=== PATIENT | female | born 1985 | race Caucasian/White ===

== ENCOUNTER 2025-01-10 09:25 | Emergency (ER) | payer OTHER ==
--- NOTE | 2025-01-10 09:42 | EDPHYS ---
Physician Documentation [facility] Name: Lani Blankenship Age: 39 yrs Sex: Female : 1985 Arrival Date: 01/10/2025 Time: 09:25 Bed IW2 Private MD: ED Physician Doni Garcia HPI: 01/10 09:47 This 39 yrs old Female presents to ER via Ambulatory with complaints of Laceration To kb Foot. 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 States they were tearing up tile and a piece cut her. States her boss superglued to laceration, but she decided to come in because she has radiating pain up to her knee when she walks. . Historical: - Allergies: 09:42 Celexa; ss - Infectious Disease History:: Denies. - Social history:: Smoking status: Reported history of juuling and/or vaping. ROS: 09:45 Constitutional: As per HPI kb Exam: 09:45 Constitutional: This is a well developed, well nourished patient who is awake, alert, kb and in no acute distress. Head/Face: Normocephalic, atraumatic. ENT: Moist Mucous membranes Respiratory: Respirations even and unlabored. No increased work of breathing. Talking in full sentences MS/ Extremity: Pulses equal, no cyanosis. Neurovascular intact. Full, normal range of motion. Neuro: Awake and alert, GCS 15, oriented to person, place, time, and situation. 09:45 Skin: injury, laceration(s), the wound is approximately 1 cm(s), of the right Achilles, that can be described as clean, no foreign body, linear, without bleeding, repaired with superglue, Vital Signs: 09:40 Resp 14; Temp 98.9(O); Pulse Ox 99% ; Weight 54.43 kg; Height 5 ft. 1 in. ; Pain 0/10; ss 09:40 BP 108 / 66; Pulse 60; ss 09:40 Body Mass Index 22.67 (54.43 kg, 154.94 cm) ss 09:40 Pain Scale: Adult ss MDM: 09:33 Medical Screening Exam initiated kb 09:46 Differential diagnosis: superficial laceration, tendon injury, vascular injury. Data kb reviewed: vital signs, nurses notes. Test considered but Not performed: X-ray: xray ankle considered but pt has no bony tenderness. MRI: MRI considered but pt no indication for emergent MRI. Counseling: I had a detailed discussion with the patient and/or guardian regarding the historical points, exam findings, and any diagnostic results supporting the discharge/admit diagnosis, the need for outpatient follow up, a orthopedic surgeon, to return to the emergency department if symptoms worsen or persist or if there are any questions or concerns that arise at home. ED course: Pt educated to follow up with ortho or foot/ankle for further eval if pain does not improve. Administered Medications: 09:49 Drug: Boostrix Tdap IM 0.5 ml IM once; as a single dose {Note: 02/08/27 4YA34.} Route: ss IM; Site: right deltoid; 09:50 Follow up: Response: Medication Administered at Departure ss Disposition Summary: 01/10/25 09:41 Discharge Ordered Notes: Location: Home kb Condition: Stable kb Diagnosis - Laceration without foreign body of lower leg kb Followup: kb - With: Emergency Department - When: As needed - Reason: Worsening of condition Followup: kb - With: Private Physician - When: 2 - 3 days - Reason: Recheck today's complaints, Continuance of care, Re-evaluation by your physician Discharge Instructions: - Discharge Summary Sheet kb - Laceration Care, Adult, [id number] kb Forms: - Medication Reconciliation Form kb - Antibiotic Education kb - Prescription Opioid Use kb - Patient Portal Instructions kb - Leadership Thank You Letter kb Signatures: Mariela Whittaker FNP-C FNP-Shana Arrieta, RN RN ss Corrections: (The following items were deleted from the chart) 09:43 09:42 Social history: Smoking status: Patient denies any tobacco usage or history of. ssss
[2025-01-10] MEDS ORDERED: TDAP (DIPHTH,PERTUSS(ACELL),TET VAC) 0.5 ML VIAL IMVAC ONE (09:46)
--- NOTE | 2025-01-10 09:52 | ER ---
Nurse's Notes [facility] Name: Lani Blankenship Age: 39 yrs Sex: Female : 1985 Arrival Date: 01/10/2025 Time: 09:25 Bed IW2 Private MD: Diagnosis: Laceration without foreign body of lower leg Presentation: 01/10 09:40 Chief complaint: Patient states: Small laceration that was super glued before arrival ss sustained by a piece of tile 1 hour ago. Coronavirus screen: Client denies travel out of the [place] in the last 14 days. Ebola Screen: Patient denies exposure to infectious person. Patient denies travel to an Ebola-affected area in the 21 days before illness onset. Complicating Factors: There are no complicating factors for this patient. Initial Sepsis Screen: Does the patient meet any 2 criteria? No. Patient's initial sepsis screen is negative. Does the patient have a suspected source of infection? No. Patient's initial sepsis screen is negative. Risk Assessment: Do you want to hurt yourself or someone else? Patient reports no desire to harm self or others. Onset of symptoms was January 10, 2025. 09:40 Method Of Arrival: Ambulatory ss 09:40 Acuity: LAUREN 5 ss Historical: - Allergies: 09:42 Celexa; ss - Infectious Disease History:: Denies. - Social history:: Smoking status: Reported history of juuling and/or vaping. Screenin:50 Abuse screen: Denies threats or abuse. Denies injuries from another. Nutritional ss screening: No deficits noted. Tuberculosis screening: Never had TB. Assessment: 09:51 General: Appears in no apparent distress. comfortable, Behavior is calm, cooperative. ss Neuro: Level of Consciousness is awake, alert, obeys commands. Derm: Skin is intact, is healthy with good turgor, Skin is pink, warm \T\ dry. normal. Vital Signs: 09:40 Resp 14; Temp 98.9(O); Pulse Ox 99% ; Weight 54.43 kg; Height 5 ft. 1 in. ; Pain 0/10; ss 09:40 BP 108 / 66; Pulse 60; ss 09:40 Body Mass Index 22.67 (54.43 kg, 154.94 cm) ss 09:40 Pain Scale: Adult ss ED Course: 09:28 Patient arrived in ED. al6 09:33 [facility] Whitt[facility]C [facility] kb 09:33 Doni Garcia MD is Attending Physician. kb 09:42 Triage completed. ss 09:42 Arm band placed on right wrist. ss 09:50 Patient has correct armband on for positive identification. ss 09:50 No provider procedures requiring assistance completed. Patient did not have IV access ss during this emergency room visit. Administered Medications: 09:49 Drug: Boostrix Tdap IM 0.5 ml IM once; as a single dose {Note: 02/08/27 4YA34.} Route: ss IM; Site: right deltoid; 09:50 Follow up: Response: Medication Administered at Departure ss Medication: 09:50 Vaccine Information Statement (VIS) provided today. Questions and/or concerns ss addressed. VIS edition date: November 2019. Outcome: 09:41 Discharge ordered by . kb 09:51 Discharged to home ambulatory, ss 09:51 Condition: good 09:51 Discharge instructions given to patient, Instructed on discharge instructions, follow up and referral plans. wound care, Demonstrated understanding of instructions, follow-up care, wound care, 09:51 Patient left the ED. ss Signatures: Mariela Whittaker FNP-C [employer]-Shana Arrieta, RN RN Martha Darby al6 Corrections: (The following items were deleted from the chart) 09:43 09:42 Social history: Smoking status: Patient denies any tobacco usage or history of. ssss
== END 2025-01-10 09:51 | disposition home or self-care (01) ==
LOC: ER 09:25
DX: S91.311A Laceration without foreign body, right foot, initial encounter (principal); Z23 Encounter for immunization
CPT/HCPCS: 90715; 96372; 99284